=== PATIENT | female | born 1990 | race Caucasian/White ===

== ENCOUNTER 2022-01-15 00:08 | Inpatient (IN) | payer OTHER ==
[2022-01-15 00:39] VITALS: BMI 33.6
[2022-01-15] MEDS ORDERED: hydrALAZINE 20 MG/ML VIAL SLOW IVP PRN ×3 (00:51→18:57)
[2022-01-15 01:02] LABS: Fetal Membranes Rupture RUPTURE DETECTED (No Rupture)
[2022-01-15] MEDS ORDERED: Misoprostol 200 MCG TAB PR PRN (01:27)
[2022-01-15] MEDS ORDERED: Butorphanol Tartrate 1 MG/ML VIAL SLOW IVP PRN (01:27)
[2022-01-15] MEDS ORDERED: Diphenoxylate HCl/Atropine Tablet PO PRN (01:27)
[2022-01-15] MEDS ORDERED: Lidocaine 1% (PF) 30 ML VIAL SC PRN (01:27)
[2022-01-15] MEDS ORDERED: Ondansetron PF 4 MG/2 ML Vial IVP PRN ×2 (01:27→18:57)
[2022-01-15] MEDS ORDERED: Methylergonovine 0.2 MG/ML VIAL IM PRN ×2 (01:27→18:57)
[2022-01-15] MEDS ORDERED: Carboprost 250 MCG/ML AMP IM PRN (01:27)
[2022-01-15] MEDS ORDERED: Promethazine HCl 25 MG/ML VIAL IM PRN (01:27)
[2022-01-15] MEDS ORDERED: NS w/ Oxytocin 30 units 500 ML IV SCH ×2 (01:30)
[2022-01-15 02:35] LABS: Hemoglobin 13.1 g/dL (12.0-15.5); Mean Corpuscular HGB CONC 34.5 g/dL (32.0-36.0); Mean Corpuscular Hemoglobin 30.6 pg (27.0-33.0); Mean Corpuscular Volume 88.8 fl (81.6-98.3); Mean Platelet Volume 10.8 fl (7.4-10.4); Platelet Count 233 10x3/uL (150-450); RBC Distribution Width 13.3 % (11.5-14.5); Red Blood Cell (RBC) Count 4.28 10x6/uL (3.90-5.03); White Blood Cell (WBC) Count 15.4 10x3/uL (3.5-10.5)
[2022-01-15 03:11] LABS: Syphilis Antibody Nonreactive (Nonreactive); Syphilis Antibody Index 0.03 S/CO (<1.00 Non-Reactive)
[2022-01-15 03:13] LABS: Hep B Surf Ag Non-Reactive S/CO (NonReactive)
[2022-01-15 05:47] LABS: SARS-CoV-2 NAA Rapid Test Not Detected (NotDetected)
[2022-01-15] MEDS: Lactated Ringer's 1,000 ML IV SCH ×3 (07:53→18:18)
[2022-01-15] MEDS ORDERED: Lanolin Ointment 7 GM TUBE TOP PRN ×2 (10:04→18:57)
[2022-01-15] MEDS ORDERED: Milk Of Magnesia 30 ML UDCUP PO PRN (18:57)
[2022-01-15] MEDS ORDERED: HYDROcodone/Acetaminophen 5/325 mg Tablet PO PRN ×2 (18:57)
[2022-01-15] MEDS ORDERED: Bisacodyl 10 MG SUPP PR PRN (18:57)
[2022-01-15] MEDS ORDERED: NS w/ Oxytocin 30 units 500 ML IV PRN (18:57)
[2022-01-15] MEDS ORDERED: Benzocaine-Menthol 82.5 ML CAN TOP PRN (18:57)
[2022-01-15] MEDS ORDERED: Misoprostol 200 MCG TAB VAG PRN (18:57)
[2022-01-15] MEDS: Ibuprofen 800 MG TAB PO SCH (21:13)
[2022-01-15] MEDS: Docusate 100 MG CAP PO SCH (21:13)
[2022-01-16] MEDS: Ibuprofen 800 MG TAB PO SCH ×3 (05:17→21:36)
[2022-01-16] MEDS: Docusate 100 MG CAP PO SCH ×2 (08:12→21:36)
[2022-01-16] MEDS: Prenatal Vitamin 1 TAB PO SCH (08:12)
[2022-01-16] MEDS: Ferrous Sulfate 325 MG TAB PO SCH ×2 (08:16→17:33)
[2022-01-17] MEDS: Ibuprofen 800 MG TAB PO SCH ×2 (05:18→15:01)
[2022-01-17 07:53] VITALS: BP 126/84; TEMP 97.4
[2022-01-17] MEDS: Ferrous Sulfate 325 MG TAB PO SCH ×2 (08:51→17:01)
[2022-01-17] MEDS: Docusate 100 MG CAP PO SCH (09:34)
[2022-01-17] MEDS: Prenatal Vitamin 1 TAB PO SCH (09:34)
== END 2022-01-17 18:10 | disposition home or self-care (01) | DRG 807 ==
LOC: CSHLD/OP 00:08 → CSHLD 02:50 → CSHPP 19:35
PROVIDERS: ADMIT Obstetrics & Gynecology; ATTEND Obstetrics & Gynecology
PROC: 10E0XZZ Delivery of Products of Conception, External Approach (ICD-10-PCS; principal; 2022-01-15)
DX: O42.02 Full-term premature rupture of membranes, onset of labor within 24 hours of rupture (principal); Z37.0 Single live birth; Z88.2 Allergy status to sulfonamides; Z20.822 Contact with and (suspected) exposure to COVID-19; Z3A.39 39 weeks gestation of pregnancy; Z79.899 Other long term (current) drug therapy; O69.81X0 Labor and delivery complicated by cord around neck, without compression, not applicable or unspecified; O69.2XX0 Labor and delivery complicated by other cord entanglement, with compression, not applicable or unspecified; O71.89 Other specified obstetric trauma
CPT/HCPCS: 36415; 84112; 85027; 86780; 86850; 86900; 86901; 87340; 99285; J2590; J7120; U0002